=== PATIENT | female | born 1965 | race Two or more races ===

== ENCOUNTER 2020-04-27 11:08 | Inpatient (IN) | payer MEDICARE, MEDICAID ==
[2020-04-27] VITALS (13 sets, daily range): BP systolic 85–135; BP diastolic 47–94
[~2020-04-27] VITALS: Ht 157.5 cm; Wt 58.0 kg
[2020-04-27] MEDS ORDERED: SODIUM CHLORIDE 0.9% 1,000 ML IV ONE ×3 (11:19→14:30)
[2020-04-27] MEDS ORDERED: PANTOPRAZOLE 40mg/50ML NS AE 50 ML IV ONE (11:30)
[2020-04-27 11:49] LABS: Basophils # (auto) 0 10 ^3/uL (0-0.2); Eosinophils # (auto) 0 10 ^3/uL (0-0.8); Hematocrit 27.3 % (36.0-46.0); Hemoglobin 8.7 g/dL (12.2-16.2); Monocytes # (auto) 0.2 10 ^3/uL (0-1.3); Neutrophils # (auto) 3.7 10 ^3/uL (1.6-8.6)
[2020-04-27 11:50] LABS: Basophils % (auto) 0.3 % (0.0-2.0); Lymphocytes # (auto) 0.4 10 ^3/uL (0.4-5.4); Lymphocytes % (auto) 9.1 % (10.0-50.0); Mean Corpuscular Volume 78.1 fL (80.0-100.0); Monocytes % (auto) 3.9 % (0.0-12.0); Neutrophils % (auto) 86.7 % (37.0-80.0); Platelet Count (auto) 65 10^3/uL (140-450); White Blood Cell 4.3 10^3/uL (4.4-10.8)
[2020-04-27 11:52] LABS: Red Cell Distribution Width 21.9 % (11.8-14.3)
[2020-04-27 12:03] LABS: INR 1.4 (0.9-1.15); Partial Thromboplastin Time 30.3 sec (23.64-32.05)
[2020-04-27 12:10] LABS: Albumin 2.3 g/dL (3.4-5.0); Anion Gap 10 (5-15); Blood Urea Nitrogen 21 mg/dL (7-18); Calcium 7.3 mg/dL (8.5-10.1); Carbon Dioxide 18 mmol/L (21-32); Chloride 108 mmol/L (98-107); Glucose 97 mg/dL (74-106); Sodium 136 mmol/L (136-145)
[2020-04-27 12:15] LABS: Alanine Aminotransferase 37 U/L (13-56); Alkaline Phosphatase 355 U/L (45-117); Aspartate Aminotransferase 49 U/L (15-37); BUN/Creatinine Ratio 21.2; Bilirubin, Total 1.2 mg/dL (0.2-1.0); GFR African American 75 mL/min; GFR Non-African American 62 mL/min; Total Protein 7.3 g/dL (6.4-8.2)
[2020-04-27 12:18] LABS: Potassium 2.9 mmol/L (3.5-5.1)
[2020-04-27] MEDS: NOREPINEPHRINE 8 MG/250ML KIT 250 ML IV SCH (13:18)
[2020-04-27] MEDS ORDERED: ONDANSETRON HCL 4 MG/2 ML VIAL ONE (13:29)
[2020-04-27] MEDS ORDERED: ONDANSETRON HCL 4 MG/2 ML VIAL IV ONE (13:45)
[2020-04-27] MEDS ORDERED: TREP1TAB3 (14:25)
[2020-04-27] MEDS ORDERED: ZINC50TA2 (14:25)
[2020-04-27] MEDS ORDERED: FAMO-12 (14:25)
[2020-04-27] MEDS ORDERED: SENN-51 (14:25)
[2020-04-27] MEDS ORDERED: FERR1TAB8 (14:25)
[2020-04-27] MEDS: OCTREOTIDE ACETATE 500 MCG in SODIUM CHL 0.9% 99 ML IV SCH (14:30)
[2020-04-27] MEDS ORDERED: PROMETHAZINE HCL 25 MG/ML 1ML IV PRN (14:30)
[2020-04-27] MEDS ORDERED: OCTREOTIDE ACETATE 100 MCG in SODIUM CHL 0.9% 50 ML IV ONE (14:30)
[2020-04-27] MEDS ORDERED: NITROGLYCERIN 0.4 MG SL TAB SL PRN (14:30)
[2020-04-27] MEDS ORDERED: SOD CHL 0.9%/ KCL 40MEQ 1,000 ML IV ONE (14:30)
[2020-04-27] MEDS ORDERED: MORPHINE SULF INJ 2 MG/ML SYRINGE 1ML IV PRN ×3 (14:30)
[2020-04-27] MEDS: fentaNYL CITRATE 100 MCG/2 ML VL ONE ×2 (14:48→15:28)
[2020-04-27] MEDS ORDERED: ETOMIDATE (2MG/ML) 20ML VIAL IV ONE ×2 (15:02→15:30)
[2020-04-27] MEDS ORDERED: SUCCINYLCHOLINE CHLORIDE 20 MG/ML 10ML VIAL IV ONE ×2 (15:02→15:30)
[2020-04-27] MEDS ORDERED: diphenhdrAMINE HCL 50 MG/1 ML VL ONE (15:11)
[2020-04-27] MEDS ORDERED: phytonadione 10 MG in SODIUM CHL 0.9% 50 ML IV ONE (15:15)
--- NOTE | 2020-04-27 15:18 | NUR ---
PT WAS INTUBATED BY DR CHILDS FOR EGD PROCEDURE. PT WITH SIZE 7.5 ETT AT 23CM LIP, SECURED WITH HOLISTER. PLACEMENT CONFIRMED WITH POSITIVE COLOR CHANGE ON CO2 MONITOR, BILATERAL BREATH SOUNDS. PLACED PT ON VENT V17 PLUGGED INTO RED OUTLET, ON SETTINGS: AC, RR 14, VT 450, PEEP +5, FIO2 100%. SUCTIONED FOR SMALL THIN BLOODY SECRETIONS. ALARMS SET AND AUDIBLE. OR TEAM AT BEDSIDE SETTING UP FOR EGD. WILL CONTINUE TO MONITOR.
[2020-04-27] MEDS ORDERED: MIDAZOLAM HCL 0 ML IV ONE (15:21)
[2020-04-27] MEDS ORDERED: fentaNYL CITRATE 100 MCG/2 ML VL ONE (15:21)
[2020-04-27] MEDS: MIDAZOLAM HCL 5 MG/ML-1ML VIAL ONE ×3 (15:28→15:48)
[2020-04-27] MEDS ORDERED: fentaNYL CITRATE 100 MCG/2 ML VL IV ONE (15:45)
[2020-04-27] MEDS ORDERED: MIDAZOLAM HCL 5 MG/ML-1ML VIAL IV ONE (15:45)
[2020-04-27] MEDS ORDERED: MIDAZOLAM DRIP 50 mg/50mL 50 ML IV ONE (15:50)
[2020-04-27] MEDS ORDERED: PROPOFOL 100 ML IV ONE (15:59)
[2020-04-27] MEDS: POTASSIUM CHL 20MEQ/100ML 100 ML IV SCH ×3 (16:35→19:00)
[2020-04-27] MEDS: MIDAZOLAM DRIP 50 mg/50mL 50 ML IV SCH (16:40)
[2020-04-27] MEDS: PROPOFOL 100 ML IV SCH (16:41)
[2020-04-27] MEDS ORDERED: phytonadione 1 ML ONE (17:05)
[2020-04-27] MEDS: PANTOPRAZOLE 40 MG/10 ML VIAL INJ IV SCH (22:00)
[2020-04-27 22:48] LABS: Hematocrit 36.5 % (36.0-46.0); Hemoglobin 11.2 g/dL (12.2-16.2)
[2020-04-28] VITALS (30 sets, daily range): BP systolic 83–116; BP diastolic 52–71
[2020-04-28 01:48] LABS: Hemoglobin 11.4 g/dL (12.2-16.2)
[2020-04-28 01:50] LABS: Hematocrit 37.7 % (36.0-46.0)
[2020-04-28] MEDS: PROPOFOL 100 ML IV SCH (02:20)
[2020-04-28] MEDS: NOREPINEPHRINE 8 MG/250ML KIT 250 ML IV SCH (02:20)
[2020-04-28] MEDS: MIDAZOLAM DRIP 50 mg/50mL 50 ML IV SCH ×2 (02:20→20:53)
[2020-04-28] MEDS: OCTREOTIDE ACETATE 500 MCG in SODIUM CHL 0.9% 99 ML IV SCH ×2 (02:20→20:37)
[2020-04-28] MEDS ORDERED: ACETAMINOPHEN 650 MG RECT SUPP PR PRN (04:45)
[2020-04-28 05:41] LABS: Urine Bacteria MOD /hpf (None Seen); Urine Blood 1+ /uL (Negative); Urine Specific Gravity 1.007 (1.001-1.035); Urine WBC 2 /hpf (0 - 5)
[2020-04-28] MEDS ORDERED: MIDAZOLAM DRIP 50 mg/50mL 50 ML IV ONE ×2 (07:32→11:48)
[2020-04-28 08:12] LABS: INR 1.23 (0.9-1.15)
[2020-04-28 08:53] LABS: Basophils # (auto) 0 10 ^3/uL (0-0.2); Eosinophils # (auto) 0 10 ^3/uL (0-0.8); Hemoglobin 10.5 g/dL (12.2-16.2); Lymphocytes # (auto) 0.8 10 ^3/uL (0.4-5.4); Mean Corpuscular Hemoglobin 25.9 pg (28.0-32.0); Neutrophils # (auto) 19.9 10 ^3/uL (1.6-8.6); Red Blood Cells 4.07 10^6/uL (4.0-5.20); White Blood Cell 21.7 10^3/uL (4.4-10.8)
[2020-04-28 08:55] LABS: Basophils % (auto) 0.1 % (0.0-2.0); Hematocrit 33.1 % (36.0-46.0); Lymphocytes % (auto) 3.9 % (10.0-50.0); Mean Corpuscular Hgb Conc. 31.8 g/dL (32.0-36.0); Mean Corpuscular Volume 81.4 fL (80.0-100.0); Monocytes # (auto) 0.9 10 ^3/uL (0-1.3); Monocytes % (auto) 4.3 % (0.0-12.0); Neutrophils % (auto) 91.7 % (37.0-80.0); Platelet Count (auto) 94 10^3/uL (140-450)
[2020-04-28 09:02] LABS: Red Cell Distribution Width 20.8 % (11.8-14.3)
[2020-04-28 09:10] LABS: Albumin 2.2 g/dL (3.4-5.0); BUN/Creatinine Ratio 26.9; Potassium 4.9 mmol/L (3.5-5.1)
--- NOTE | 2020-04-28 09:27 | NUR ---
WOUND CARE NOTE: HOSPITAL AIR BED ORDERED AT THIS TIME. PATIENT TO BE PLACED, PENDING DELIVERY BY [facility]
[2020-04-28] MEDS: PANTOPRAZOLE 40 MG/10 ML VIAL INJ IV SCH ×2 (09:50→20:37)
[2020-04-28] MEDS ORDERED: PHENYLEPHRINE IV 250 ML IV SCH (10:45)
[2020-04-28] MEDS ORDERED: SODIUM CHLORIDE 0.9% 500 ML IV ONE (10:45)
[2020-04-28] MEDS ORDERED: levoFLOXacin 750MG 150 ML IV ONE (10:45)
--- NOTE | 2020-04-28 12:15 | NUR ---
WOUND CARE NOTE: IN TO SEE PATIENT AT THIS TIME PER WOUND CARE CONSULT REQUEST. PATIENT NOTED UPON ADMISSION ASSESSMENT TO HAVE WOUND TO COCCYX, PER BEDSIDE NURSE. SPECIALTY AIR BED HAS BEEN ORDERED, AND IS PENDING DELIVERY. PATIENT IS IN ER BED 16. SHE IS INTUBATED, SEDATED. PATIENT NOTED TO HAVE AN EVOLVING DTI, OPEN TO STAGE 2 AT THIS TIME. WOUND BED IS PURPLE, WITH PALE RED/PINK PERIWOUND. SCANT SEROUS DRAINAGE NOTED. APPLIED THERAHONEY, OPTIFOAM GENTLE SACRAL DRESSING APPLIED. SKIN/WOUND CARE PLAN IMPLEMENTED. RECOMMEND: FREQUENT TURN SCHEDULE Q 2 HOURS, PRN CONDITION PERMITS, WITH PRESSURE REDISTRIBUTION USING PILLOWS/WEDGES, BID/PRN APPLICATION WITH MOISTURE BARRIER CREAM, TO PERIRECTAL/BUTTOCK SKIN; DAILY/PRN DRESSING CHANGE WITH THERAHONEY, OPTIFOAM GENTLE DRESSING TO COCCYX; DIETARY CONSULT, SPECIALTY AIR BED, SKIN/WOUND CARE PLAN, CONTINUED MONITORING BY WOUND CARE TEAM. Addendum: 04/28/20 at 1852 by Amy Lazaro RN Amended: Links added.
[2020-04-28] MEDS ORDERED: D5W/SOD CHLO 0.9% 1,000 ML IV SCH (14:15)
--- NOTE | 2020-04-28 15:53 | NUR ---
Faxed higher level of care order to Brenda Cisse.
--- NOTE | 2020-04-28 18:10 | NUR ---
RT Transport Note: Patient transported to RM 105 with RN. Patient transported to ICU via [facility]. 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 Transport completed without incident.
--- NOTE | 2020-04-28 18:13 | NUR ---
Admit to ICU from ER on vent Paulie BAUMANdmitted to ICU via gurerica on dye machine tender, intubated and being bagged by Respiratory Therapist. Patient transfered to bed, connected to mechanical ventilator by therapist, SURJITM at bedside. Patient connected to ICU monitoring, weighed by bedscale, oriented to Bill rivera RN, unit, ventilator and sedation.
[2020-04-28] MEDS ORDERED: SODIUM BICARBONATE 8.4 % INJ 50ML VIAL IV ONE (19:00)
--- NOTE | 2020-04-28 19:01 | NUR ---
REPORT GIVEN TO MEGAN GARIBAY TO ASSUME CARE
--- NOTE | 2020-04-28 19:01 | NUR ---
CXR ORDERED PER DR. CONCEPCION REGARDING ET TUBE PLACEMENT
[2020-04-28] MEDS ORDERED: NOREPINEPHRINE 8 MG/250ML KIT 250 ML IV SCH (20:30)
[2020-04-29] VITALS (9 sets, daily range): BP systolic 93–102; BP diastolic 56–61
--- NOTE | 2020-04-29 00:21 | NUR ---
TRANSFER INFORMATION AUDRA AT THE TRANSFER CENTER PATIENT IS GOING TO UNIT 4700 BED 4720 ACCEPTING PHYSICIAN JANESSA Gonzalez MD CALL REPORT TO [phone]
--- NOTE | 2020-04-29 01:05 | NUR ---
JANAY AIR SPOKE TO MAYANK AT DISPATCH [facility] 22 ACCEPTS PATIENT FOR TRANSPORT TO [facility] ICU FROM [facility] ETA 13 MINUTES SECURITY NOTIFIED OF INCOMING AIR UNIT
--- NOTE | 2020-04-29 01:19 | NUR ---
HOSPITALIST TRANSFER PAPERWORK SIGNED BY DR EDWARDS WHO IS REQUESTING THAT THE PATIENT BE TRANSPORTED VIA AIR AMBULANCE TO [facility] AND NUMBER OF DRIPS
--- NOTE | 2020-04-29 01:21 | NUR ---
REQUEST MADE FOR STRETCHER BE TAKEN OUT TO THE [facility] FOR INCOMING AIR UNIT
--- NOTE | 2020-04-29 02:04 | NUR ---
Full report provided to Casi Adam RN at [facility]. Accepting physician made. Room and bed available per [facility] admitting. Full report provided to Service Operator Kashif. At this point patient vital signs are within normal limits per hospital policy and standard. Patient currently raas of -3. Titrating levophed per md Spence to a systolic pressure of 80-85. Patient tolerating ventilator. Patient saturation 98 percent with 30 percent Fio2. 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
[2020-04-29] MEDS ORDERED: levoFLOXacin 750MG 150 ML IV SCH (10:00)
== END 2020-04-29 02:25 | disposition short-term general hospital (02) | DRG 871 ==
LOC: ER 11:08 → EDBD 11:08 → OVERFLOW 11:09 → ICU WEST 04-28 17:24
PROVIDERS: ADMIT Internal Medicine; ATTEND Internal Medicine Nephrology
PROC: 5A1945Z Respiratory Ventilation, 24-96 Consecutive Hours (ICD-10-PCS; 2020-04-27)
PROC: 0BH17EZ Insertion of Endotracheal Airway into Trachea, Via Natural or Artificial Opening (ICD-10-PCS; 2020-04-27)
PROC: 30230N1 Transfusion of Nonautologous Red Blood Cells into Peripheral Vein, Open Approach (ICD-10-PCS; 2020-04-27)
PROC: 30233L1 Transfusion of Nonautologous Fresh Plasma into Peripheral Vein, Percutaneous Approach (ICD-10-PCS; 2020-04-27)
PROC: 30233K1 Transfusion of Nonautologous Frozen Plasma into Peripheral Vein, Percutaneous Approach (ICD-10-PCS; 2020-04-27)
PROC: 02HV33Z Insertion of Infusion Device into Superior Vena Cava, Percutaneous Approach (ICD-10-PCS; 2020-04-27)
PROC: 06L38CZ Occlusion of Esophageal Vein with Extraluminal Device, Via Natural or Artificial Opening Endoscopic (ICD-10-PCS; principal; 2020-04-27 14:45)
DX: A41.9 Sepsis, unspecified organism (principal); I50.43 Acute on chronic combined systolic (congestive) and diastolic (congestive) heart failure; R57.1 Hypovolemic shock; R65.21 Severe sepsis with septic shock; J96.01 Acute respiratory failure with hypoxia; R18.8 Other ascites; D68.9 Coagulation defect, unspecified; D61.818 Other pancytopenia; K76.6 Portal hypertension; I13.0 Hypertensive heart and chronic kidney disease with heart failure and stage 1 through stage 4 chronic kidney disease, or unspecified chronic kidney disease; D62 Acute posthemorrhagic anemia; I85.10 Secondary esophageal varices without bleeding; Z99.11 Dependence on respirator [ventilator] status; M06.9 Rheumatoid arthritis, unspecified; M35.00 Sjogren syndrome, unspecified; I27.20 Pulmonary hypertension, unspecified; I25.10 Atherosclerotic heart disease of native coronary artery without angina pectoris; K74.60 Unspecified cirrhosis of liver; E87.6 Hypokalemia; N18.9 Chronic kidney disease, unspecified; N20.0 Calculus of kidney; Z79.899 Other long term (current) drug therapy; Z20.828 Contact with and (suspected) exposure to other viral communicable diseases
CPT/HCPCS: 31500; 36415; 36430; 36556; 36600; 43235; 51702; 71045; 74176; 80053; 81001; 82805; 82962; 83605; 83880; 84484; 85014; 85018; 85025; 85045; 85610; 85730; 86850; 86900; 86901; 86920; 87040; 87070; 87077; 87081; 87186; 87205; 93005; 93971; 94002; 94003; 96361; 96374; 99291; C9113; G0378; J0330; J1956; J2250; J2405; J2704; J3430; J3480; J7042